=== PATIENT | female | born 1975 | race Caucasian/White ===

== ENCOUNTER 2017-02-25 16:41 | Observation (INO) | payer MEDICARE ==
[~2017-02-25] VITALS: Ht 167.6 cm; Wt 78.7 kg
[2017-02-25 18:09] LABS: BASOPHILS 0.5 % (0.0-2.0); EOSINOPHILS 1.1 % (0-7); HEMOGLOBIN 13.9 g/dL (12-16); IMMATURE GRANULOCYTES 0.2 % (0-5); LYMPHOCYTES 40.6 % (15-50); MCH 34.5 pg (26.0-34.0); MCHC 33.9 g/dL (31.0-37.0); MCV 101.7 fL (80.0-100.0); MEAN PLATELET VOLUME 8.8 fL (7.4-10.4); MONOCYTES 8.7 % (2-11); NEUTROPHILS 48.9 % (40-80); PLATELET COUNT 254 10x3/uL (130-400); RBC 4.03 10x6/uL (4.00-5.40); RDW 13.1 % (11.5-14.5); WBC 6.5 10x3/uL (4.8-10.8)
[2017-02-25 18:26] LABS: ALBUMIN 4.6 g/dL (3.4-5.0); ALKALINE PHOSPHATASE 58 U/L (46-116); ALT (SGPT) 46 U/L (10-68); BILIRUBIN - TOTAL 0.31 mg/dL (0.2-1.3); CALC OSMOLALITY 280 mosm/kg (275-300); CALCIUM 9.3 mg/dL (8.5-10.1); CARBON DIOXIDE 28.1 mmol/L (21.0-32.0); CHLORIDE - SERUM 103 mmol/L (98-107); CREATININE - SERUM 0.8 mg/dL (0.6-1.3); GLUCOSE 88 mg/dL (74-106); POTASSIUM - SERUM 4.1 mmol/L (3.5-5.1); PROTEIN - SERUM 7.5 g/dL (6.4-8.2); SODIUM 140 mmol/L (136-145); UREA NITROGEN 21 mg/dL (7-18); eGFR NON AFRICAN AMERICAN 83 mL/min (90-120)
[2017-02-25 18:37] LABS: CHOL - HDL RATIO 2.8 ratio (2.3-4.1); CHOLESTEROL, TOTAL 230 mg/dL (0-200); CKMB 0.8 U/L (0.0-3.6); CREATINE KINASE 58 UL (21-215); HDL CHOLESTEROL 81 mg/dL (32-96); LDL CHOLESTEROL 129 mg/dL (0-100); LDL-HDL RATIO 1.6 ratio (1.5-3.5); TRIGLYCERIDE 100 mg/dL (30-200)
[2017-02-25 18:39] LABS: TROPONIN-I < 0.017 ng/mL (0.000-0.060)
[2017-02-25 20:00] VITALS: BP 105/70
[2017-02-25 23:03] VITALS: BP 105/70; Ht 167.6 cm; Wt 78.7 kg
[2017-02-25] MEDS ORDERED: ESTRACE1 MG PO (23:22)
[2017-02-25] MEDS ORDERED: MOBIC7.5 MG PO (23:23)
[2017-02-25] MEDS ORDERED: TOPAMAX50 MG PO (23:24)
[2017-02-25] MEDS ORDERED: CYCLOBENZAPRINE10 MG PO (23:25)
[2017-02-25] MEDS ORDERED: DESERYL100 MG PO (23:26)
[2017-02-25] MEDS ORDERED: IMITREX100 MG PO (23:27)
[2017-02-25] MEDS ORDERED: METHOTREXATE2.5 MG PO (23:28)
[2017-02-25] MEDS ORDERED: FOLIC ACID1 MG PO (23:31)
[2017-02-25] MEDS ORDERED: OMEPRAZOLE40 MG PO (23:31)
[2017-02-25] MEDS ORDERED: OXYCONTIN10 MG PO (23:33)
[2017-02-25] MEDS ORDERED: FLUNISOLIDE29 MCG NASAL (23:34)
[2017-02-25] MEDS ORDERED: REMICADE INJ100 MG (23:34)
[2017-02-26 00:37] LABS: CREATINE KINASE 46 UL (21-215)
[2017-02-26 00:40] LABS: TROPONIN-I < 0.017 ng/mL (0.000-0.060)
[2017-02-26] MEDS ORDERED: POTASSIUM CITRA5 MEQ (01:30)
--- NOTE | 2017-02-26 03:52 | NUR ---
LINEMAN APPRENTICE AT BEDSIDE FOR VS. NEEDS ADDRESSED. CALL LIGHT IN REACH. WILL CONT TO MONITOR.
[2017-02-26 04:00] VITALS: BP 116/71
--- NOTE | 2017-02-26 06:41 | NUR ---
PT C/O EPIGASTRIC/MIDSTERNAL PAIN UNRELIEVED BY DILAUDID. CONT TO CO MIGRAINE. STATES "WILL ONLY BE RELIEVED BY MY MIGRAINE MEDS"
[2017-02-26 06:49] LABS: BASOPHILS 0.2 % (0.0-2.0); EOSINOPHILS 0.3 % (0-7); HEMATOCRIT 37.2 % (36.0-48.0); HEMOGLOBIN 12.3 g/dL (12-16); IMMATURE GRANULOCYTES 0.2 % (0-5); LYMPHOCYTES 19.7 % (15-50); MCHC 33.1 g/dL (31.0-37.0); MCV 102.8 fL (80.0-100.0); MEAN PLATELET VOLUME 8.6 fL (7.4-10.4); MONOCYTES 10.6 % (2-11); PLATELET COUNT 212 10x3/uL (130-400); RBC 3.62 10x6/uL (4.00-5.40); RDW 13.2 % (11.5-14.5); WBC 5.8 10x3/uL (4.8-10.8)
[2017-02-26 07:23] LABS: ALBUMIN 3.7 g/dL (3.4-5.0); ALKALINE PHOSPHATASE 67 U/L (46-116); CALC OSMOLALITY 277 mosm/kg (275-300); CARBON DIOXIDE 25.1 mmol/L (21.0-32.0); CHLORIDE - SERUM 104 mmol/L (98-107); CKMB 0.5 U/L (0.0-3.6); CREATINE KINASE 28 UL (21-215); CREATININE - SERUM 0.6 mg/dL (0.6-1.3); GLUCOSE 122 mg/dL (74-106); MAGNESIUM - SERUM 2.1 mg/dL (1.8-2.4); PHOSPHOROUS 3.2 mg/dL (2.5-4.9); POTASSIUM - SERUM 3.6 mmol/L (3.5-5.1); PROTEIN - SERUM 6.4 g/dL (6.4-8.2); SODIUM 137 mmol/L (136-145); TROPONIN-I < 0.017 ng/mL (0.000-0.060); UREA NITROGEN 22 mg/dL (7-18); eGFR NON AFRICAN AMERICAN > 90 mL/min (90-120)
[2017-02-26 07:26] LABS: ALT (SGPT) 457 U/L (10-68)
--- NOTE | 2017-02-26 07:40 | NUR ---
RECEIVED PT IN BED RESP UNLABORED C/O MIGRAINE AND NAUSEA PAGED JACINDA COLLINS APN WITH [facility] TO REQUEST MEDICATION ORDERS
[2017-02-26 08:50] VITALS: BP 123/81
[2017-02-26 12:33] VITALS: BP 144/68
[2017-02-26 13:08] LABS: CKMB 0.6 U/L (0.0-3.6); CREATINE KINASE 41 UL (21-215)
[2017-02-26 13:10] LABS: TROPONIN-I < 0.017 ng/mL (0.000-0.060)
--- NOTE | 2017-02-26 13:34 | NUR ---
IV ACCESS-22 GAUGE INSERTED IN LEFT HAND FOR ACCESS. ESTRADA TOLBERT RN
[2017-02-26 16:15] VITALS: BP 131/86
--- NOTE | 2017-02-26 17:05 | NUR ---
Patient Name: PRAVEENA LOERA Admission Status: ER Accout number: [id number] Admission Date: 02-25-2017 : 1975 Admission Diagnosis: Attending: JENNA Current LOS: 1 Anticipated DC Date: TO BE DETERMINED Planned Disposition: HOME Primary Insurance: [employer]ARE ADV Discharge Planning Comments: CM PROVIDED AND DISCUSSED MEDICARE OUTPATIENT OBSERVATION NOTICE FORM TO PT, SPOUSE ALSO PRESENT. PT DOES NOT WANT TO BE CHARGED FOR HOME MEDICATIONS AND WOULD LIKE TO TAKE HER HOME MEDICATIONS THAT SHE HAS FROM HOME. PT PLANS TO TRANSPORT HOME WITH SPOUSE AT DISCHARGE. CM CONTACT INFORMATION PROVIDED TO PT. NURSE NOTIFIED. Station Gateman: Dmitri Brennan
--- NOTE | 2017-02-26 19:15 | NUR ---
INITIAL ROUNDS MADE. PT SITTING UP IN BED WITH FAMILY IN ROOM. NO NEEDS OR C/O VOICED AT THIS TIME. CALL LIGHT IN REACH. WILL CONT TO MONITOR.
[2017-02-26 20:00] VITALS: BP 107/60
--- NOTE | 2017-02-26 23:24 | NUR ---
ADVERTISING CONSULTANT AT BEDSIDE FOR VS. NEEDS ADDRESSED AT THIS TIME. CALL LIGHT IN REACH. WILL CONT TO MONITOR.
[2017-02-27] VITALS: BP 112/68
--- NOTE | 2017-02-27 00:05 | NUR ---
REFUSING SCHEDULED OXYCONTIN AT THIS TIME.
--- NOTE | 2017-02-27 03:20 | NUR ---
PT C/O HEADACHE, STATES "TOOK OWN IMITREX"
[2017-02-27 04:00] VITALS: BP 101/56
[2017-02-27 05:38] LABS: BASOPHILS 0.7 % (0.0-2.0); HEMATOCRIT 35.6 % (36.0-48.0); HEMOGLOBIN 11.6 g/dL (12-16); LYMPHOCYTES 52.5 % (15-50); MCH 33.5 pg (26.0-34.0); MCHC 32.6 g/dL (31.0-37.0); MCV 102.9 fL (80.0-100.0); MEAN PLATELET VOLUME 8.8 fL (7.4-10.4); MONOCYTES 10.2 % (2-11); NEUTROPHILS 34.6 % (40-80); PLATELET COUNT 208 10x3/uL (130-400); RBC 3.46 10x6/uL (4.00-5.40); WBC 4.5 10x3/uL (4.8-10.8)
[2017-02-27 05:57] LABS: INR 1.06 (0.85-1.17); PROTIME 13.6 SECONDS (11.6-15.0)
[2017-02-27 06:06] LABS: ALBUMIN 3.3 g/dL (3.4-5.0); ALKALINE PHOSPHATASE 59 U/L (46-116); AMYLASE - SERUM 33 U/L (25-115); CARBON DIOXIDE 25.7 mmol/L (21.0-32.0); CHLORIDE - SERUM 107 mmol/L (98-107); CHOLESTEROL, TOTAL 150 mg/dL (0-200); CREATININE - SERUM 0.6 mg/dL (0.6-1.3); GLUCOSE 84 mg/dL (74-106); HDL CHOLESTEROL 65 mg/dL (32-96); LDL CHOLESTEROL 74 mg/dL (0-100); LIPASE 205 U/L (73-393); POTASSIUM - SERUM 3.8 mmol/L (3.5-5.1); PROTEIN - SERUM 5.8 g/dL (6.4-8.2); SODIUM 139 mmol/L (136-145); TRIGLYCERIDE 57 mg/dL (30-200); eGFR NON AFRICAN AMERICAN > 90 mL/min (90-120)
[2017-02-27 06:07] LABS: CHOL - HDL RATIO 2.3 ratio (2.3-4.1); LDL-HDL RATIO 1.1 ratio (1.5-3.5)
[2017-02-27 06:10] LABS: ALT (SGPT) 283 U/L (10-68); CALC OSMOLALITY 277 mosm/kg (275-300); UREA NITROGEN 15 mg/dL (7-18)
--- NOTE | 2017-02-27 07:32 | NUR ---
RECEIVED REPORT FROM FRAME TABLE OPERATOR HELPER. PATIENT AWAKE AND CO PAIN. ABD US ALREADY COMPLETED. WILL GIVE SCHEDULED PAIN MEDS.
[2017-02-27 07:54] VITALS: BP 113/69
[2017-02-27 11:46] VITALS: BP 124/74
[2017-02-27] MEDS ORDERED: ZOFRAN ODT4 MG/UDTAB PO (13:54)
--- NOTE | 2017-02-27 14:53 | NUR ---
PT DISCHARGED, IV DCD WITH TIP INTACT. INSTRUCTION GIVEN TO PT. TO PRIVATE CAR PER WHEELCHAIR
--- NOTE | 2017-03-09 10:19 | CN ---
PATIENT NAME:PRAVEENA MCFADDEN MEDICAL RECORD: [id number] : 73 LOCATION:[facility] D.2115 ADMIT DATE: 02/25/17 ACCOUNT: [id number] CONSULTING PHYSICIAN: KRISTIE AHUMADA MD REFERRING PHYSICIAN: SHARON MEDINA MD DATE OF CONSULTATION: 02/26/2017 DIAGNOSIS: Chest pain. HISTORY OF PRESENT ILLNESS: Mrs. Mcfadden presents with chest pain. Less than a year ago, she presented to [facility] with chest pain. She underwent cardiac catheterization, this was normal. I really did not give her an etiology of the pain. She does have a history of GERD for which she takes daily medication. She is as well on Mobic as well as many other pain medications. Her EKG is normal. Troponin is normal. PHYSICAL EXAMINATION: GENERAL APPEARANCE: Well-nourished, well-developed, appears stated age. Level of distress, comfortable. PSYCHIATRIC: Mental status, alert, normal affect. Orientation, oriented to time, place and person. EYES: Lids and conjunctiva, noninjected. No discharge, no pallor. ENT: Lips, teeth, gums, normal dentition. Oropharynx, no cyanosis, no pallor. NECK: Carotid arteries, bilateral normal upstroke, no bruits, no thrills. JUGULAR VEINS: No jugular venous pressure or distention. CERVICAL LYMPH NODES: Nontender, nonenlarged. THYROID: Not enlarged. Nontender. No nodules. LUNGS: Respiratory effort, unlabored. CHEST: Normal curvature. No thoracic deformity. No chest wall tenderness. Percussion, resonant. Auscultation, clear. No wheezes, no rales, no rhonchi. CARDIOVASCULAR: Precordial exam, nondisplaced. No heaves or pericardial thrills. Rate and rhythm, regular. Heart sounds, normal S1, normal S2. No S3, no gallop, no rub. Systolic murmur, not heard. Diastolic murmur, not heard. EXTREMITIES: No cyanosis, no edema. Peripheral pulses, full and equal in all extremities, except as noted. No bruits appreciated. ABDOMEN: Soft, nondistended. Normal aorta. No bruit. Nontender. No masses. Liver, nontender, no hepatomegaly. Spleen, nontender, no splenomegaly. MUSCULOSKELETAL: No joint tenderness. No joint swelling. No erythema. NEUROLOGICAL: Normal gait, normal strength, normal tone. SKIN: Warm and dry. REVIEW OF SYSTEMS: The patient reports easy bruising but reports no swollen glands. The patient reports no fever, no night sweats, no significant weight gain, no significant weight loss. No significant exercise tolerance. The patient reports no dry eyes, no irritation, no vision change. Patient reports no difficulty hearing and no ear pain. Patient reports no frequent nose bleeds or nose and sinus problems. Patient reports on arm pain on exertion. No shortness of breath while lying down. No history of heart murmur. Patient reports no cough, no wheezing or coughing up blood. Patient reports no abdominal pain, no vomiting. Normal appetite. No diarrhea and not vomiting blood. No nausea and no constipation. Patient reports no incontinence. No difficulty urinating. No hematuria. No increased frequency. Patient reports no muscle aches. No weakness, no arthralgias, no back pain. No swelling of the extremities. Patient reports no abnormal mole, no jaundice, no rashes. Reports no loss of consciousness. No weakness and no numbness. No seizures, dizziness, CONSULT REPORT [id number] PRAVEENA MCFADDEN or headaches. The patient reports no depression, no sleep disturbance, feeling safe in a relationship and no alcohol abuse. Patient reports on fatigue. Reports no runny nose or sinus pressure. No itching, no hives, and no frequent sneezing. OVERALL IMPRESSION: Chest pain, normal cardiac catheterization less than a year ago with a normal EKG, normal troponin. Now, this is noncardiac in etiology. No further cardiac workup needs to be ascertained. TRANSINT:[id number] Voice Confirmation ID: [id number] DOCUMENT ID: [id number] KRISTIE AHUMADA MD at 1019 CC: [id number] DICTATION DATE: 02/26/17 1050 LOGISTICS INTERN: 02/26/17 1239 DIS IN 02/27/17 [address] [place] [address]
== END 2017-02-27 14:15 | disposition home or self-care (01) ==
LOC: D.ER 16:41 → D.M2 19:49 → OBSVTIME 19:49 → D.M2 19:49 → D.SDCHOLD 02-26 13:48 → D.M2 02-27 14:15
PROVIDERS: Emergency Medicine; Family Medicine; Surgery; ADMIT Family Medicine
DX: R07.89 Other chest pain (principal); M06.9 Rheumatoid arthritis, unspecified; G43.909 Migraine, unspecified, not intractable, without status migrainosus; F41.9 Anxiety disorder, unspecified; F32.9 Major depressive disorder, single episode, unspecified; R74.8 Abnormal levels of other serum enzymes

== ENCOUNTER → 2017-04-02 10:33 | Outpatient (CLI) | payer MEDICARE ==
[2017-02-25 23:03] VITALS: BMI 27.8
[~2017-04-02 10:33] MED LIST: CYCLOBENZAPRINE10 MG PO; DESERYL100 MG PO; ESTRACE1 MG PO; FLUNISOLIDE29 MCG NASAL; FOLIC ACID1 MG PO; IMITREX100 MG PO; METHOTREXATE2.5 MG PO; MOBIC7.5 MG PO; OMEPRAZOLE40 MG PO; OXYCONTIN10 MG PO; POTASSIUM CITRA5 MEQ; REMICADE INJ100 MG; TOPAMAX50 MG PO; ZOFRAN ODT4 MG/UDTAB PO
== END | disposition home or self-care (01) ==
LOC: D.RAD 10:33
DX: K21.9 Gastro-esophageal reflux disease without esophagitis (principal); R10.13 Epigastric pain

== ENCOUNTER → 2017-04-12 19:53 | Outpatient (CLI) | payer MEDICARE, MEDICAID ==
[2017-02-25 23:03] VITALS: BMI 27.8
== END | disposition home or self-care (01) ==
LOC: D.MAMMO 03-26 09:30
DX: Z12.31 Encounter for screening mammogram for malignant neoplasm of breast (principal)

== ENCOUNTER → 2017-07-19 10:40 | Outpatient (CLI) | payer MEDICARE, MEDICAID ==
[2017-02-25 23:03] VITALS: BMI 27.8
== END | disposition home or self-care (01) ==
LOC: D.LAB 10:40 → D.CT 11:30
DX: R91.1 Solitary pulmonary nodule (principal)

== ENCOUNTER → 2017-07-27 08:43 | Outpatient (CLI) | payer MEDICARE, MEDICAID ==
[2017-02-25 23:03] VITALS: BMI 27.8
== END | disposition home or self-care (01) ==
LOC: D.NM 07-25 12:30
DX: R12 Heartburn (principal); R10.9 Unspecified abdominal pain; R11.0 Nausea

== ENCOUNTER 2017-12-26 05:30 | Inpatient (IN) | payer MEDICARE, MEDICAID ==
[~2017-12-26] VITALS: Ht 162.6 cm; Wt 77.3 kg
--- NOTE | ~2017-12-26 | OP ---
PATIENT NAME: PRAVEENA LOERA MEDICAL RECORD: [id number] :[birth year] LOCATION:[facility]- ADMISSION DATE:12/26/17 SURGEON: FILIBERTO CHAU MD DATE OF OPERATION: 12/26/2017 SURGEON: Filiberto Chau MD PREOPERATIVE DIAGNOSES: 1. Gastroparesis. 2. Gastroesophageal reflux disease without esophagitis. 3. Hiatal hernia. 4. Rheumatoid arthritis. 5. Refractory angina. POSTOPERATIVE DIAGNOSES: 1. Gastroparesis. 2. Gastroesophageal reflux disease without esophagitis. 3. Hiatal hernia. 4. Rheumatoid arthritis. 5. Refractory angina. PROCEDURE PERFORMED: Laparoscopic pyloromyotomy. ANESTHESIA: General. COMPLICATIONS: None. SPECIMENS: None. Case was clean. ESTIMATED BLOOD LOSS: 10 cc. OPERATIVE COURSE: After consent was obtained, the patient was taken to the operating room and placed in supine position on the operating table. Next, general anesthesia was given via endotracheal intubation. After a timeout was taken to confirm the correct patient and procedure, THE abdomen was prepped and draped in a typical sterile fashion. Local anesthetic was injected just above the umbilicus. A stab incision was made with 11-blade scalpel. Using a 5-mm bladeless optical trocar, the abdomen was entered under direct laparoscopic vision. Adequate pneumoperitoneum was achieved. The abdominal cavity was inspected. No evidence of bowel injury. No evidence of bleeding. Additional 2 trocars were placed in the right lateral quadrant. Two 5-mm trocars were both placed into the right lateral quadrant. Jun retractor was used to elevate the left lobe of the liver. The pylorus was identified using electrocautery and [place] dissection. The pylorus was transected. There was no full thickness injuries noted. With the pylorus transected, the mucosa was noted to be ballooning out. At this time, the pyloromyotomy was closed in a Heineke-Mikulicz fashion using interrupted 3-0 Vicryl suture imbricating the area of transection. At this time, all remaining instruments were removed. The abdomen was desufflated. Trocars were removed. Skin was closed with 4-0 Monocryl, Mastisol and Steri-Strips. At the end of the case, all needle and instrument counts were correct. No complications occurred. The patient was extubated and transferred to the PACU in stable condition. OPERATIVE REPORT [id number] PRAVEENA LOERA TRANSINT:[id number] Voice Confirmation ID: [id number] DOCUMENT ID: [id number] FILIBERTO CHAU MD at 1259 CC: [id number] DICTATION DATE: 12/26/17 09 OCCUPATIONAL THERAPIST'S ASSISTANT: 12/26/17 1225 ADM IN [address] [place] [address]
[2017-12-26] MEDS ORDERED: DEPAKOTE250 MG PO (06:37)
[2017-12-26] MEDS ORDERED: XYZAL5 MG PO (06:38)
[2017-12-26] MEDS ORDERED: PROTONIX40 MG PO (06:39)
[2017-12-26] MEDS ORDERED: PHENERGAN25 M1 PO (06:40)
[2017-12-26] MEDS ORDERED: DILAUDID4 MG PO (06:41)
[2017-12-26] MEDS ORDERED: LIBRAX CAPSULE1 CAP PO (06:42)
[2017-12-26 07:07] VITALS: BP 92/59; BMI 30.2
[2017-12-26 07:07] LABS: HEMATOCRIT 37.8 % (36.0-48.0); HEMOGLOBIN 12.8 g/dL (12-16); MCH 34.6 pg (26.0-34.0); MCHC 33.9 g/dL (31.0-37.0); MCV 102.2 fL (80.0-100.0); MEAN PLATELET VOLUME 9.1 fL (7.4-10.4); RBC 3.7 10x6/uL (4.00-5.40); RDW 13.1 % (11.5-14.5); WBC 4.2 10x3/uL (4.8-10.8)
[2017-12-26 07:29] LABS: CALC OSMOLALITY 282 mosm/kg (275-300); CALCIUM 8.9 mg/dL (8.5-10.1); CARBON DIOXIDE 28.3 mmol/L (21.0-32.0); CHLORIDE - SERUM 106 mmol/L (98-107); CREATININE - SERUM 0.5 mg/dL (0.6-1.3); GLUCOSE 82 mg/dL (74-106); SODIUM 142 mmol/L (136-145); UREA NITROGEN 14 mg/dL (7-18); eGFR NON AFRICAN AMERICAN > 90 mL/min (90-120)
[2017-12-26 07:30] LABS: POTASSIUM - SERUM 4.2 mmol/L (3.5-5.1)
[2017-12-26 15:15] VITALS: BP 97/59; BMI 29.2
[2017-12-26 17:41] VITALS: BP 109/76
[2017-12-26 20:00] VITALS: BP 102/57
[2017-12-27 04:00] VITALS: BP 96/57
[2017-12-27 04:39] LABS: BASOPHILS 0.2 % (0-2); EOSINOPHILS 0.2 % (0-7); HEMATOCRIT 34.9 % (36.0-48.0); HEMOGLOBIN 11.6 g/dL (12-16); LYMPHOCYTES 26.6 % (15-50); MCHC 33.2 g/dL (31.0-37.0); MCV 102.3 fL (80.0-100.0); MEAN PLATELET VOLUME 8.8 fL (7.4-10.4); MONOCYTES 9.1 % (2-11); NEUTROPHILS 63.9 % (40-80); PLATELET COUNT 220 10x3/uL (130-400); RBC 3.41 10x6/uL (4.00-5.40); WBC 4.6 10x3/uL (4.8-10.8)
[2017-12-27 05:01] LABS: ALBUMIN 3.1 g/dL (3.4-5.0); ALKALINE PHOSPHATASE 59 U/L (46-116); ALT (SGPT) 460 U/L (10-68); CALC OSMOLALITY 281 mosm/kg (275-300); CALCIUM 7.8 mg/dL (8.5-10.1); CARBON DIOXIDE 27.3 mmol/L (21.0-32.0); CHLORIDE - SERUM 107 mmol/L (98-107); CREATININE - SERUM 0.5 mg/dL (0.6-1.3); GLUCOSE 94 mg/dL (74-106); POTASSIUM - SERUM 3.9 mmol/L (3.5-5.1); PROTEIN - SERUM 5.6 g/dL (6.4-8.2); SODIUM 142 mmol/L (136-145); eGFR NON AFRICAN AMERICAN > 90 mL/min (90-120)
[2017-12-27 05:09] LABS: UREA NITROGEN 10 mg/dL (7-18)
[2017-12-27 08:38] VITALS: BP 105/55
[2017-12-27 10:31] VITALS: Ht 162.6 cm; Wt 77.3 kg
[2017-12-27 11:46] VITALS: BP 84/48
[2017-12-27] MEDS ORDERED: MEPERIDINE HCL50 MG PO (12:54)
== END 2017-12-27 16:00 | disposition home or self-care (01) | DRG 327 ==
LOC: D.MS 05:30 → D.SDCHOLD 05:30 → D.WS 14:20 → D.MS 17:32
PROVIDERS: Anesthesiology; Surgery
PROC: 0D874ZZ Division of Stomach, Pylorus, Percutaneous Endoscopic Approach (ICD-10-PCS; principal; 2017-12-26 08:00)
DX: K31.84 Gastroparesis (principal); E87.1 Hypo-osmolality and hyponatremia; I10 Essential (primary) hypertension; K21.9 Gastro-esophageal reflux disease without esophagitis; K44.9 Diaphragmatic hernia without obstruction or gangrene; M06.9 Rheumatoid arthritis, unspecified; I20.8 Other forms of angina pectoris; K58.9 Irritable bowel syndrome, unspecified; F41.8 Other specified anxiety disorders

== ENCOUNTER → 2018-01-04 07:25 | Outpatient (CLI) | payer MEDICARE, MEDICAID ==
[2017-12-27 10:31] VITALS: BMI 29.2
[~2018-01-04 07:25] MED LIST changes: +DEPAKOTE250 MG PO; +DILAUDID4 MG PO; +LIBRAX CAPSULE1 CAP PO; +MEPERIDINE HCL50 MG PO; +PHENERGAN25 M1 PO; +PROTONIX40 MG PO; +XYZAL5 MG PO
== END | disposition home or self-care (01) ==
LOC: D.RAD 07:25
DX: R10.9 Unspecified abdominal pain (principal)

== ENCOUNTER 2018-02-15 17:55 | Emergency (ER) | payer MEDICARE, MEDICAID | END 2018-02-15 20:02 | disposition home or self-care (01) | LOC: D.ER 17:55 | DX: G43.909 Migraine, unspecified, not intractable, without status migrainosus (principal) ==

== ENCOUNTER → 2018-02-21 09:40 | Outpatient (CLI) | payer MEDICARE, MEDICAID ==
[2017-12-27 10:31] VITALS: BMI 29.2
== END | disposition home or self-care (01) ==
LOC: D.OPS 09:40
DX: K21.9 Gastro-esophageal reflux disease without esophagitis (principal)

== ENCOUNTER → 2018-07-01 13:09 | Outpatient (CLI) | payer MEDICARE, MEDICAID ==
[2017-12-27 10:31] VITALS: BMI 29.2
[~2018-07-01 13:09] MED LIST changes: +CARDIZEM60 MG PO; +LAMICTAL25 MG PO; +RELAFEN500 MG PO; +TOPAMAX100 MG PO; +ULTRAM50 MG PO; +ZANAFLEX4 MG PO; +ZOLOFT25 MG PO; +ZOMIG5 MG/SPRAY NS
== END | disposition home or self-care (01) ==
LOC: D.CT 13:09
DX: R91.8 Other nonspecific abnormal finding of lung field (principal)

== ENCOUNTER 2018-07-24 13:02 | Observation (INO) | payer MEDICARE, MEDICAID ==
[~2018-07-24] VITALS: Ht 162.6 cm; Wt 80.3 kg
--- NOTE | ~2018-07-24 | HEMODYNAMI ---
PATIENT:PRAVEENA LOERA MEDICAL RECORD: [id number] : 73 LOCATION:[facility] D.2116 ADMISSION DATE: 07/24/18 Generatedon:07/25/20188:48 Patient name: PRAVEENA LOERA Patient #: [id number] SSN: : 1975 Date of study: 07/25/2018 Page: Of Hemodynamic Procedure Report Patient Data Patient Demographics Procedure consent was obtained First Name: PRAVEENA Gender: Female Last Name: LUZ MARIA : 1975 Middle Initial: M Age: 43 year(s) Patient #: [id number] Race: Unknown Additional ID: [id number] Contact details Address: [address] [address] State: [place] City: [place] Zip code: [address] Admission Admission Data Admission Date: 07/24/2018 Admission Time: 16:30 Room #: D.2116 Height (in.): 63.78 BSA: 1.85 (m2) Height (cm.): 162 BMI: 30.48 (kg/m2) Weight (lbs.): 176.37 Weight (kg.): 80 Lab Results Lab Result Date: 07/25/2018 Lab Result Time: 0:00 Biochemistry Name Units Result Min Max BUN mg/dl 13 --(--*-)-- 7 18 Creatinine mg/dl 0.8 --(-*--)-- 0.6 1.3 CBC Name Units Result Min Max Hemoglobin g/dl 13.8 --(*---)-- 13.5 17.5 Procedure Procedure Types Cath Procedure Diagnostic Procedure LHC LHC w/Coronaries Procedure Description Procedure Date Procedure Date: 07/25/2018 Procedure Start Time: 8:40 Procedure End Time: 8:45 Procedure Staff Name Function Nico Yousif MD Performing Physician Twila White RT Monitor Zaki Navarro RT Scrub Jam Singh RN Nurse Procedure Data Cath Procedure Fluoroscopy Diagnostic fluoroscopy Total fluoroscopy Time: 0.9 time: 0.9 min min Diagnostic fluoroscopy Total fluoroscopy dose: 211 dose: 211 mGy mGy Contrast Material Contrast Material Type Amount (ml) Isovue 300 49 Entry Location Entry Primary Successful Side Size Upsize Upsize Entry Closure Succes sful Closure Location (Fr) 1 (Fr) 2 (Fr) Remarks Device Remarks Femoral Right 5 Fr Exoseal artery Estimated blood loss: 10 ml Diagnostic catheters Device Type Used For End Catheter Placement MULTIPACK Pigtail 5 Fr Procedure catheter MULTIPACK JL 4.0 5Fr Procedure catheter MULTIPACK 3DRC 5Fr Procedure catheter Procedure Complications No complications Procedure Medications Medication Administration Route Dosage Oxygen NC 2 l/min Heparin Flush Bag added to field 2 bags (1000units/500ml NS) 0.9% NaCl I.V. 100 ml/hr Benadryl I.V. 50 mg Fentanyl I.V. 100 mcg Versed I.V. 1 mg Fentanyl I.V. 50 mcg Versed I.V. 1 mg Fentanyl I.V. 50 mcg Hemodynamics Rest BSA: 1.85 (m2) HGB: 13.8 (g/dl) O2 Consumption: Estimated: 181.31 (ml/min) O2 Co nsumption indexed: Estimated:98.01 (ml/min/m) Heart Rate: 65 (bpm) Pressure Samples Time Site Value (mmHg) Purpose Heart Use Rate(bpm) 8:42 AO 119/75(95) Snapshot 66 Snapshots Pre Cath Intra NCS Post Cath Vital Signs Time Heart Resp SPO2 etCO2 NIBP (mmHg) Rhythm Pain Sedation Rate (ipm) (%) (mmHg) Status Level (bpm) 8:34:04 63 17 98 0 121/77(94) NSR 0 (11) 10(A) , No pain 8:38:12 62 16 99 0 122/79(94) NSR 0 (11) 10(A) , No pain 8:42:21 63 16 99 0 122/75(93) NSR 0 (11) 9(A) , No pain 8:46:29 76 17 98 0 123/79(100) NSR 0 (11) 9(A) , No pain Medications Time Medication Route Dose Verified Delivered Reason Notes Effect iveness by by 8:34:48 Oxygen NC 2 Nico Polk Per l/min Nica Singh RN physician 8:34:58 Heparin Flush added 2 Nico Polk used for Bag to bags Nica Singh RN procedure (1000units/500ml field NS) 8:35:06 0.9% NaCl I.V. 100 Nico Polk Per ml/hr Nica Singh RN physician 8:35:19 Benadryl I.V. 50 mg Nico Polk Per Nica Singh RN physician 8:39:16 Fentanyl I.V. 100 Nico Polk for kirby Singh RN sedation 8:39:21 Versed I.V. 1 mg Nico Polk for Nica Singh RN sedation 8:40:53 Fentanyl I.V. 50 Nico Polk for kirby Singh RN sedation 8:40:58 Versed I.V. 1 mg Nico Polk for Nica Singh RN sedation 8:43:39 Fentanyl I.V. 50 Nico Polk for kirby Singh RN sedation Procedure Log Time Note 8:14:52 Patient Height : 63.78 inches 8:14:56 Patient Weight : 176.37 lbs 8:15:32 Diagnostic Cath status Elective 8:15:34 Jam Singh RN sent for patient. Start room use. 8:15:35 Time tracking: Regular hours (M-F 7:00 - 5:00) 8:15:40 Plan of Care:Hemodynamics will remain stable., Cardiac rhythm will remain stable., Comfort level will be maintained., Respiratory function will remain adequate., Patient/ family verbilizes understanding of procedure., Procedure tolerated without complication., Recovers from procedure without complications.. 8:15:47 Patient received from Med II to CCL 2 Alert and oriented. Tansferred to table in Supine position. 8:16:24 Warm blankets applied, and meaghan hugger turned on for patient comfort. 8:32:54 Correct patient and procedure confirmed by team. 8:32:55 ECG and BP/O2 sat monitors applied to patient. 8:32:56 Signed procedure consent form obtained from patient. 8:32:57 Vital chart was started 8:33:03 Baseline sample Acquired. 8:33:07 Rhythm: sinus rhythm 8:33:08 Full Disclosure recording started 8:33:21 H&P Date Dictated: 07/24/2018 Within 30 days and on chart.. 8:33:24 Pre-procedure instructions explained to patient. 8:33:24 Pre-op teaching completed and patient verbalized understanding. 8:33:26 Family in patients room. 8:33:28 Patient NPO since Midnight. 8:33:30 Is the patient allergic to Iodine/contrast media? No. 8:33:32 Is patient on blood thinner?Yes 8:33:35 ACC The patient was administered the following blood thiners within the last 24 hours: ACCPlavix 8:33:37 Patient diabetic? No. 8:33:41 Previous problem with sedation/anesthesia? Yes Difficulty waking up. 8:33:44 Snore? No 8:33:46 Sleep apnea? No 8:34:03 Deviated septum? No 8:34:03 Opens mouth fully? Yes 8:34:04 Sticks out tongue? Yes 8:34:08 Airway obstruction? No ? 8:34:12 Dentures? No ? 8:34:16 Pre procedure: right dorsailis pedis pulse 1+ Palpable, but thready & weak; easily obliterated 8:34:45 Patient pain scale 0/10 ?. 8:34:48 Oxygen 2 l/min NC was administered by Jam Singh RN; Per physician; 8:34:51 IV patent on arrival in left forearm with 0.9% NaCl at [facility]. 8:34:58 Heparin Flush Bag (1000units/500ml NS) 2 bags added to field was administered by Jam Singh RN; used for procedure; 8:35:06 0.9% NaCl 100 ml/hr I.V. was administered by Jam Singh RN; Per physician; 8:35:19 Benadryl 50 mg I.V. was administered by Jam Singh RN; Per physician; 8:35:41 Lab Result : BUN 13 mg/dl 8:35:41 Lab Result : Creatinine 0.8 mg/dl 8:35:41 Lab Result : Hemoglobin 13.8 g/dl 8:35:46 Lab results completed and on chart. 8:35:51 Right groin area was prepped with chlora-prep and draped in sterile fashion 8:35:53 Alarms reviewed by R. N. 8:35:54 Sharps counted by scrub and verified by R.N. 8:35:55 Physician paged 8:35:56 Physician arrived 8:35:56 --------ALL STOP TIME OUT------ 8:35:57 Final Timeout: patient, procedure, and site verified with staff and physician. All members of the team are in agreement. 8:35:59 Right groin site verified by team. 8:36:03 Physical assessment completed. ASA score P 2 - A patient with mild systemic disease as per Nico Yousif MD. 8:36:06 Sedation plan: IV Moderate Sedation Medication:Versed, Fentanyl 8:36:11 Use device set Femoral Dx 8:39:16 Fentanyl 100 mcg I.V. was administered by Jam Singh RN; for sedation; 8:39:21 Versed 1 mg I.V. was administered by Jam Singh RN; for sedation; 8:39:59 ACIST Syringe (34477) opened to sterile field. 8:40:01 Zero performed for pressure channel P1 8:40:10 Zero performed for pressure channel P1 8:40:20 Procedure started. 8:40:39 Bag Decanter (2002S) opened to sterile field. 8:40:39 Medline Cath Pack ([id number]) opened to sterile field. 8:40:40 DIAGNOSTIC WIRE .035 260cm J wire (945189) opened to sterile field. 8:40:41 ACIST Hand Control (39333) opened to sterile field. 8:40:41 ACIST Manifold (02069) opened to sterile field. 8:40:42 DIAGNOSTIC Multipack 5Fr catheter set (LO3581) opened to sterile field. 8:40:42 Tegaderm 4 x 4 (1626W) opened to sterile field. 8:40:45 PERCUTANEOUS ENTRY 19GA needle opened to sterile field. 8:40:47 SHEATH Prelude 5Fr 0.035 (XBF-9V-11-035) opened to sterile field. 8:40:52 Local anesthetic to right femoral artery with Lidocaine 2% by Nico Yousif MD.INITIAL ACCESS ONLY 8:40:53 Fentanyl 50 mcg I.V. was administered by Jam Singh RN; for sedation; 8:40:58 Versed 1 mg I.V. was administered by Jam Singh RN; for sedation; 8:41:00 A 5 Fr sheath was inserted into the Right Femoral artery 8:41:04 J wire advanced. 8:41:16 A MULTIPACK Pigtail 5 Fr catheter was advanced over the wire and used for Procedure. 8:42:04 EF : 50 % 8:42:09 Catheter removed. 8:42:17 A MULTIPACK JL 4.0 5Fr catheter was advanced over the wire and used for Procedure. 8:43:08 LCA angiography performed. 8:43:28 Catheter removed. 8:43:35 A MULTIPACK 3DRC 5Fr catheter was advanced over the wire and used for Procedure. 8:43:39 Fentanyl 50 mcg I.V. was administered by Jam Singh RN; for sedation; 8:44:07 RCA angiography performed. 8:44:14 Catheter removed. 8:44:16 EXOSEAL 5Fr (EX500) opened to sterile field. 8:44:29 Sheath removed intact; hemostasis achieved with Exoseal to the Right Femoral artery. 8:44:32 Procedure ended.(Physican Out) 8:45:05 Fluoroscopy time 00.90 minutes. 8:45:09 Fluoroscopy dose: 211 mGy 8:45:09 Flurop Dose total: 211 8:45:12 Contrast amount:Isovue 300 49ml. 8:45:14 Sharps counted by scrub and verified by R.N. 8:45:20 Post right femoral artery:stable 8:45:25 Post-procedure physical assessment completed. ASA score P 2 - A patient with mild systemic disease as per Nico Yousif MD. 8:45:27 Post procedure rhythm: unchanged. 8:45:30 Estimated blood loss: 10 ml 8:45:32 Post procedure instruction explained to patient.Patient verbalizes understanding. 8:45:44 Procedure Complication : No complications 8:45:47 Vital chart was stopped 8:45:47 See physician's report for complete and final results. 8:45:49 Report given to Pre/Post Procedure Room. 8:45:52 Patient transfered to Pre/Post Procedure Room with Stretcher. 8:45:55 Procedure ended. 8:45:55 Full Disclosure recording stopped 8:45:59 End room use (Document Last) Device Usage Item Name Manufacture Quantity Catalog Number Hospital Part Current M inimal Lot# / Charge Number Stock Stock Serial# Code ACIST Syringe Acist 1 67206 184147 668563 296370 2 0 (69733) Secure64 Bag Decanter Microtek 1 334272 34582 856277 5 (2001S) Medical Inc. Medline Cath Cardinal 1 [id number] 026834 44832 027849 5 HiConversion Health ([id number]) DIAGNOSTIC WIRE [facility] [place] 1 [id number] 871286 860946 614808 3 0 .035 260cm J wire (114619) ACIST Hand Acist 1 17147 195576 324013 224130 5 Control (61989) Medical Systems Inc ACIST Manifold Acist 1 62355 881554 024455 554875 5 (31937) Medical Systems Inc DIAGNOSTIC Cardinal 1 [id number] 858908 47978 020795 3 0 Multipack 5Fr Health catheter set ([id number]) Tegaderm 4 x 4 3M 1 1626W 808400 955704 717376 5 (1626W) PERCUTANEOUS Cook Medical 1 [id number] 298724 304023 5 ENTRY 19GA needle SHEATH Prelude Merit 1 [id number] 004305 666746 960857 5 5Fr 0.035 Medical (QCM-4U-77-035) MULTIPACK Cardinal 1 [id number] 5 Pigtail 5 Fr Health catheter MULTIPACK JL Cardinal 1 [id number] 5 4.0 5Fr Health catheter MULTIPACK 3DRC Cardinal 1 [id number] 5 5Fr catheter Health EXOSEAL 5Fr Cardinal 1 EX500 329795 540288 305893 1 0 (EX500) Health Signature Audit [place] Stage Time Signature Unsigned Intra-Procedure 07/25/2018 Twila White 8:48:50 AM RT(R) Signatures Monitor : Twila White Signature : RT Date : Time : [facility] [address] [place] [address]
--- NOTE | ~2018-07-24 | DS ---
PATIENT:PRAVEENA MCFADDEN :73 MEDICAL RECORD: [id number] DISCHARGE SUMMARY ADMISSION DATE: 07/24/18 DISCHARGE DATE: 07/25/18 DATE OF DISCHARGE: 07/25/2018 DIAGNOSES: 1. Chest pain, noncardiac. 2. Normal cardiac catheterization. 3. Rheumatoid arthritis. 4. Esophageal stricture. HOSPITAL COURSE: Mrs. Mcfadden presents with chest pain, it was different and more severe than her pain that she usually has from her esophageal pain; however, cardiac catheterization was normal. Discharged home with no cardiac followup needed. We will follow up with her primary care doctor and GI physician. TRANSINT:[id number] Voice Confirmation ID: [id number] DOCUMENT ID: [id number] KRISTIE AHUMADA MD at 1843 CC: [id number] DICTATION DATE: 07/25/18 0848 LAY OUT DRAFTER: 07/25/18 0902 DIS IN 07/25/18 [address] [place] [address]
--- NOTE | ~2018-07-24 | OP ---
PATIENT NAME: PRAVEENA LOERA MEDICAL RECORD: [id number] :73 LOCATION:[facility] ADMISSION DATE:07/24/18 SURGEON: KRISTIE AHUMADA MD DATE OF OPERATION: 07/25/2018 PROCEDURES: 1. Left heart catheterization. 2. Selective coronary angiography. 3. Left ventriculogram. INDICATION: Chest pain compatible with angina. PROCEDURE IN DETAIL: After informed consent was obtained and after detailed description of risks, benefits as well as alternative therapies, the patient elected to proceed with angiogram and heart catheterization. The right femoral area was prepped and draped in normal sterile fashion. Right femoral artery was cannulated via modified Seldinger technique with placement of 5-Trinidadian sheath. All catheters exchanged through this sheath. FINDINGS: The left ventriculogram was performed in a standard 30-degree YUN view, reveals good cardiac wall motion throughout all segments. Overall ejection fraction estimated at 60%. SELECTIVE CORONARY ANGIOGRAPHY: Left main, left anterior descending, left circumflex, right coronary are smooth-walled vessels with no angiographic evidence of coronary artery disease. OVERALL IMPRESSION: 1. No angiographic evidence of coronary artery disease. 2. Normal left heart pressures. 3. Normal left ventricular systolic function. Chest pain is noncardiac in etiology. No further cardiac workup needs to be ascertained. TRANSINT:[id number] Voice Confirmation ID: [id number] DOCUMENT ID: [id number] KRISTIE AHUMADA MD at 1843 CC: [id number] DICTATION DATE: 07/25/18 0850 RANCH SUPERVISOR: 07/25/18 0900 DIS IN 07/25/18 [address] [place] [address]
[~2018-07-24 13:02] MED LIST changes: -CARDIZEM60 MG PO; -LAMICTAL25 MG PO; -RELAFEN500 MG PO; -TOPAMAX100 MG PO; -ULTRAM50 MG PO; -ZANAFLEX4 MG PO; -ZOLOFT25 MG PO; -ZOMIG5 MG/SPRAY NS
[2018-07-24 13:37] LABS: BASOPHILS 0.6 % (0-2); EOSINOPHILS 0.8 % (0-7); HEMATOCRIT 39.9 % (36.0-48.0); HEMOGLOBIN 13.8 g/dL (12-16); IMMATURE GRANULOCYTES 0.2 % (0-5); MCH 36.2 pg (26.0-34.0); MCHC 34.6 g/dL (31.0-37.0); MCV 104.7 fL (80.0-100.0); MEAN PLATELET VOLUME 8.7 fL (7.4-10.4); MONOCYTES 9.1 % (2-11); NEUTROPHILS 55.3 % (40-80); PLATELET COUNT 262 10x3/uL (130-400); RBC 3.81 10x6/uL (4.00-5.40); WBC 6.6 10x3/uL (4.8-10.8)
[2018-07-24 13:54] LABS: ALBUMIN 4.3 g/dL (3.4-5.0); ALKALINE PHOSPHATASE 57 U/L (46-116); ALT (SGPT) 22 U/L (10-68); BILIRUBIN - TOTAL 0.31 mg/dL (0.2-1.3); CALC OSMOLALITY 277 mosm/kg (275-300); CALCIUM 8.7 mg/dL (8.5-10.1); CARBON DIOXIDE 26.7 mmol/L (21.0-32.0); CHLORIDE - SERUM 107 mmol/L (98-107); CREATININE - SERUM 0.8 mg/dL (0.6-1.3); GLUCOSE 102 mg/dL (74-106); POTASSIUM - SERUM 3.5 mmol/L (3.5-5.1); PROTEIN - SERUM 7.7 g/dL (6.4-8.2); SODIUM 139 mmol/L (136-145); UREA NITROGEN 13 mg/dL (7-18); eGFR NON AFRICAN AMERICAN 82 mL/min (90-120)
[2018-07-24 14:00] VITALS: BP 117/77
[2018-07-24 14:00] LABS: APTT 23.7 SECONDS (22.8-39.4); INR 1.03 (0.85-1.17); PROTIME 13.1 SECONDS (11.6-15.0)
[2018-07-24 14:01] LABS: APPEARANCE CLEAR (CLEAR); BILIRUBIN NEGATIVE (NEGATIVE); COLOR YELLOW (YELLOW); GLUCOSE NEGATIVE (NEGATIVE); KETONE NEGATIVE (NEGATIVE); NITRITE NEGATIVE (NEGATIVE); PROTEIN NEGATIVE (NEGATIVE); UROBILINOGEN NORMAL (NORMAL)
[2018-07-24 14:04] LABS: CKMB 0.7 U/L (0.0-3.6); CREATINE KINASE 55 UL (21-215); TROPONIN-I < 0.017 ng/mL (0.000-0.060)
[2018-07-24] MEDS ORDERED: REMICADE INJ100 MG (14:27)
[2018-07-24 15:00] VITALS: BP 109/67
[2018-07-24 16:00] VITALS: BP 120/73
[2018-07-24 17:00] VITALS: BP 126/79
[2018-07-24 18:00] VITALS: BP 112/73
[2018-07-24 21:17] VITALS: BP 109/65
[2018-07-25] MEDS ORDERED: CARDIZEM60 MG PO (00:18)
[2018-07-25] MEDS ORDERED: ZOLOFT25 MG PO (00:18)
[2018-07-25] MEDS ORDERED: ZOMIG5 MG/SPRAY NS (00:18)
[2018-07-25] MEDS ORDERED: TOPAMAX100 MG PO (00:19)
[2018-07-25] MEDS ORDERED: ZANAFLEX4 MG PO (00:21)
[2018-07-25] MEDS ORDERED: ULTRAM50 MG PO (00:22)
[2018-07-25] MEDS ORDERED: RELAFEN500 MG PO (00:22)
[2018-07-25] MEDS ORDERED: LAMICTAL25 MG PO (00:23)
[2018-07-25 00:51] VITALS: BP 109/65; BMI 30.3
[2018-07-25 06:35] VITALS: BP 103/58
[2018-07-25 07:49] VITALS: BP 109/61
[2018-07-25 08:26] VITALS: Ht 162.6 cm; Wt 80.3 kg
== END 2018-07-25 11:27 | disposition home or self-care (01) ==
LOC: D.ER 13:02 → OBSVTIME 16:30 → D.EDHOLD 16:30 → D.M2 16:30 → D.EDHOLD 16:30 → D.CLR 16:30 → D.M2 18:08 → D.CLR 07-25 08:55
PROVIDERS: Family Medicine
DX: R07.89 Other chest pain (principal); M06.9 Rheumatoid arthritis, unspecified; K22.2 Esophageal obstruction; K21.9 Gastro-esophageal reflux disease without esophagitis; K44.9 Diaphragmatic hernia without obstruction or gangrene

== ENCOUNTER → 2018-09-16 08:53 | Outpatient (CLI) | payer MEDICARE, MEDICAID ==
[2018-07-25 08:26] VITALS: BMI 30.3
[~2018-09-16 08:53] MED LIST changes: +CARDIZEM60 MG PO; +LAMICTAL25 MG PO; +RELAFEN500 MG PO; +TOPAMAX100 MG PO; +ULTRAM50 MG PO; +ZANAFLEX4 MG PO; +ZOLOFT25 MG PO; +ZOMIG5 MG/SPRAY NS
== END | disposition home or self-care (01) ==
LOC: D.RAD 08:53
DX: R10.9 Unspecified abdominal pain (principal); R10.2 Pelvic and perineal pain

== ENCOUNTER 2019-03-17 08:00 | Outpatient (CLI) | payer MEDICARE, MEDICAID ==
[2018-07-25 08:26] VITALS: BMI 30.3
== END 2019-03-17 09:00 | disposition home or self-care (01) ==
LOC: D.MAMMO 08:00
PROVIDERS: ATTEND Family Medicine
DX: Z12.31 Encounter for screening mammogram for malignant neoplasm of breast (principal)

== ENCOUNTER 2020-04-23 09:00 | Outpatient (CLI) | payer MEDICARE ==
[2018-07-25 08:26] VITALS: BMI 30.3
== END 2020-04-23 10:00 | disposition home or self-care (01) ==
LOC: D.MAMMO 09:00
PROVIDERS: ATTEND Clinical Nurse Specialist Adult Health
DX: Z12.31 Encounter for screening mammogram for malignant neoplasm of breast (principal)